=== PATIENT | male | born 1985 | race Caucasian/White ===

== ENCOUNTER 2019-10-25 02:56 | Emergency (ER) | payer MEDICAID, OTHER, SELFPAY ==
[~2019-10-25] VITALS: Ht 177.8 cm; Wt 86.1 kg
--- NOTE | 2019-10-25 03:09 | NUR ---
pt ambulated back to room with a smooth and steady gait, changed into gown, NAD, RESP WNL, P/W/D, call light on lap. WCTM.
--- NOTE | 2019-10-25 03:10 | NUR ---
Geovanna SANTOS at BS for EVAL and discussing POC
[2019-10-25] MEDS ORDERED: DIPHENHYDRAMINE 50 MG/ML, 1ML ONE (03:26)
[2019-10-25] MEDS ORDERED: KETOROLAC 60 MG/2 ML ONE (03:26)
[2019-10-25] MEDS ORDERED: PROCHLORPERAZINE 5 MG/ML, 2ML ONE (03:26)
[2019-10-25] MEDS ORDERED: PROCHLORPERAZINE 5 MG/ML, 2ML IM ONE (03:30)
[2019-10-25] MEDS ORDERED: KETOROLAC 30 MG/1 ML IM ONE (03:30)
[2019-10-25] MEDS ORDERED: DIPHENHYDRAMINE 50 MG/ML, 1ML IM ONE (03:30)
--- NOTE | 2019-10-25 03:41 | NUR ---
pt back from CT, resting in [facility], medicated per AUG, NAD, RESP WNL, P/W/D. WCTM. waiting for CT read.
--- NOTE | 2019-10-25 04:07 | NUR ---
Patient given discharge instructions and they have confirmed that they understand the instructions. Patient ambulatory with steady gait. Pt NAD, RESP WNL, ABC intact, P/W/D, RN discussed the importance of getting a ride home due to benadryl. Denies additional questions at this time.
[2019-10-25 04:13] VITALS: BP 123/81
== END 2019-10-25 04:15 | disposition home or self-care (01) ==
LOC: ED 03:48
DX: R51 Headache (principal); Z88.0 Allergy status to penicillin; Z79.899 Other long term (current) drug therapy
CPT/HCPCS: 70450; 96372; 99284; J0780; J1200; J1885